=== PATIENT | male | born 1950 | race Caucasian/White ===

== ENCOUNTER 2017-05-14 11:06 | Inpatient (IN) | payer OTHER ==
[~2017-05-14] VITALS: Ht 170.2 cm; Wt 82.3 kg
[~2017-05-14 11:06] MED LIST: RINGERS SOLUTION,LACTATED 1,000 ML IV ONE
[2017-05-14] MEDS ORDERED: PROPOFOL 1000 MG/ISO-OSM 100 ML IV ONE ×2 (12:54→16:04)
[2017-05-14] MEDS ORDERED: ACETAMINOPHEN 1000 MG/ISO-OSM 100 ML IV ONE (12:54)
[2017-05-14] MEDS ORDERED: RINGERS SOLUTION,LACTATED 1,000 ML IV ONE (12:55)
[2017-05-14] MEDS ORDERED: ROCURONIUM BROMIDE 10 MG/ML 5 ML VIAL ONE (12:57)
[2017-05-14] MEDS ORDERED: VANCOMYCIN HCL 1 GM/VIAL ONE ×2 (13:43→14:55)
[2017-05-14] MEDS ORDERED: SODIUM CHLORIDE 0.9% 250 ML IV ONE (13:44)
[2017-05-14] MEDS ORDERED: BUPIVACAINE HCL/PF 0.5% 30 ML VIAL ONE (13:46)
[2017-05-14] MEDS ORDERED: HYDROmorphone 2 MG/ML SYRINGE IVP PRN ×2 (14:30→17:15)
[2017-05-14] MEDS ORDERED: ONDANSETRON HCL 4 MG/2 ML VIAL IVP PRN ×2 (14:30→17:00)
[2017-05-14] MEDS ORDERED: SODIUM CHLORIDE 0.9% 10 ML ONE (14:56)
[2017-05-14] MEDS ORDERED: EPINEPHrine 1:1,000 [1 MG/ML] AMP ONE (14:56)
[2017-05-14] MEDS ORDERED: ZOLPIDEM TARTRATE 10 MG TABLET PO PRN (17:00)
[2017-05-14] MEDS ORDERED: BENZOCAINE/MENTHOL LOZENGE [8 LOZENGES/PACKET] PO PRN (17:00)
[2017-05-14] MEDS ORDERED: MEPERIDINE-PF 25 MG/ML SYRINGE IVP PRN (17:15)
[2017-05-14] MEDS ORDERED: FentaNYL CITRATE-PF 100 MCG/2 ML VIAL IVP PRN (17:15)
[2017-05-14 18:09] VITALS: BP 123/88
[2017-05-14] MEDS: ACETAMINOPHEN 1000 MG/ISO-OSM 100 ML IV SCH (20:55)
[2017-05-14] MEDS: DOCUSATE SODIUM 100 MG CAPSULE PO SCH (20:55)
[2017-05-14] MEDS: CYCLOBENZAPRINE HCL 10 MG TABLET PO SCH (20:56)
[2017-05-14] MEDS: CeFAZolin 1 GM/DEXTROSE 50 ML IV SCH (20:58)
[2017-05-14 21:52] VITALS: BP 132/84
[2017-05-15] VITALS (7 sets, daily range): BP systolic 102–127; BP diastolic 73–81
[2017-05-15] MEDS: DEXAMETHASONE SOD PHOS 4 MG/ML VIAL IVP SCH ×4 (00:01→23:29)
[2017-05-15] MEDS: POTASSIUM CHL 20 MEQ/D5-0.45NS 1,000 ML IV SCH ×2 (00:03→20:53)
[2017-05-15] MEDS ORDERED: KETAMINE HCL 50 MG/ML 10 ML VIAL IVP ONE (01:15)
[2017-05-15] MEDS ORDERED: FentaNYL CITRATE-PF 100 MCG/2 ML VIAL IVP ONE (01:15)
[2017-05-15] MEDS ORDERED: MIDAZOLAM HCL 2 MG/2 ML VIAL IVP ONE (01:15)
[2017-05-15] MEDS ORDERED: VANCOMYCIN HCL 1 GM/D5% WATER 200 ML IV SCH (01:30)
[2017-05-15] MEDS: OXYGEN THERAPY IH SCH ×6 (01:52→20:53)
[2017-05-15] MEDS: ACETAMINOPHEN 1000 MG/ISO-OSM 100 ML IV SCH (03:20)
[2017-05-15] MEDS ORDERED: LIDOCAINE HCL/PF 2% 5 ML VIAL INJ ONE (04:58)
[2017-05-15] MEDS ORDERED: SUCCINYLCHOLINE CHLORIDE 20 MG/ML 10 ML VIAL IVP ONE (04:58)
[2017-05-15] MEDS ORDERED: EPHEDrine SULFATE 50 MG/ML VIAL IM ONE (04:58)
[2017-05-15] MEDS ORDERED: DEXAMETHASONE SOD PHOS 4 MG/ML VIAL IVP ONE (04:58)
[2017-05-15] MEDS ORDERED: ROCURONIUM BROMIDE 10 MG/ML 5 ML VIAL IVP ONE (04:58)
[2017-05-15] MEDS ORDERED: PROPOFOL 1% 20 ML VIAL IVP ONE (04:58)
[2017-05-15] MEDS ORDERED: ONDANSETRON HCL 4 MG/2 ML VIAL IVP ONE (04:58)
[2017-05-15] MEDS: CeFAZolin 1 GM/DEXTROSE 50 ML IV SCH (05:04)
[2017-05-15 06:20] LABS: EOSINOPHILS % (AUTO) 0 % (1.0-6.0); HEMATOCRIT 43.3 % (41-53); LYMPHOCYTES # (AUTO) 0.6 K/uL (1.0-4.8); LYMPHOCYTES % (AUTO) 5.4 % (22.0-44.0); MEAN CORPUSCULAR HEMOGLOBIN 31.5 pg (26.0-34.0); MEAN CORPUSCULAR HGB CONC 34.8 G/dL (31.0-37.0); MEAN CORPUSCULAR VOLUME 90 fL (80-100); MONOCYTES # (AUTO) 0.2 K/uL (0.1-1.0); MONOCYTES % (AUTO) 1.5 % (2.0-9.0); NEUTROPHILS # (AUTO) 9.8 K/uL (1.8-7.7); PLATELET COUNT (AUTO) 215 K/uL (150-450); RED BLOOD CELL COUNT(AUTO) 4.78 MIL/uL (4.50-5.90); RED CELL DISTRIBUTION WIDTH 12.2 % (11.5-14.5); WHITE BLOOD COUNT (AUTO) 10.5 K/uL (4.5-11.0)
[2017-05-15 06:54] LABS: NEUTROPHILS % (AUTO) 93.1 % (40.0-70.0)
[2017-05-15] MEDS ORDERED: OxyCODONE HCL/ACETAMINOPHEN 5-325 MG TABLET PO PRN (09:00)
[2017-05-15] MEDS: DOCUSATE SODIUM 100 MG CAPSULE PO SCH ×2 (09:01→20:50)
[2017-05-15] MEDS: CYCLOBENZAPRINE HCL 10 MG TABLET PO SCH ×2 (09:01→20:50)
[2017-05-15 09:34] LABS: CALCIUM, TOTAL 8.5 mg/dL (8.8-10.5); CREATININE 0.95 mg/dL (0.60-1.30); GLOMERULAR FILTR. RATE CALC > 60 mL/min (>60); UREA NITROGEN, BLOOD 12 mg/dL (7-18)
[2017-05-15 09:41] LABS: ANION GAP 14 mmol/L (8-16); CARBON DIOXIDE 20 mmol/L (22-29); CHLORIDE 103 mmol/L (98-107); POTASSIUM 4.2 mmol/L (3.5-5.1); SODIUM SERUM 137 mmol/L (136-145)
[2017-05-16] VITALS: BP 114/76
[2017-05-16 04:00] VITALS: BP 116/78
[2017-05-16 07:59] VITALS: BP 119/85
[2017-05-16] MEDS: CYCLOBENZAPRINE HCL 10 MG TABLET PO SCH (08:26)
[2017-05-16] MEDS: DOCUSATE SODIUM 100 MG CAPSULE PO SCH (08:26)
== END 2017-05-16 10:20 | disposition home or self-care (01) | DRG 473 ==
LOC: 4E 11:06
PROVIDERS: ADMIT Orthopaedic Surgery; ATTEND Orthopaedic Surgery
PROC: 0RB30ZZ Excision of Cervical Vertebral Disc, Open Approach (ICD-10-PCS; 2017-05-14)
PROC: 0RG20A0 Fusion of 2 or more Cervical Vertebral Joints with Interbody Fusion Device, Anterior Approach, Anterior Column, Open Approach (ICD-10-PCS; principal; 2017-05-14 13:15)
DX: M47.812 Spondylosis without myelopathy or radiculopathy, cervical region (principal); M48.02 Spinal stenosis, cervical region; Z96.649 Presence of unspecified artificial hip joint
CPT/HCPCS: 72040; 87081; 97116; 97162; 97165; 97530; 97535; C1713; G0238; J0131; J0171; J0330; J0690; J1100; J1170; J2250; J2405; J2704; J3010; J3370; J3480; J3490; J7050; J7120